=== PATIENT | female | born 1970 ===

== ENCOUNTER 2021-07-30 06:00 | Outpatient (RCR) | payer MEDICARE, MEDICAID, SELFPAY | END 2021-08-03 23:59 | disposition home or self-care (01) | LOC: MPT 06:00 | PROVIDERS: PCP Nurse Practitioner Family; Referring Provider Nurse Practitioner Family; Visit Provider Nurse Practitioner Family | DX: M46.06 Spinal enthesopathy, lumbar region (principal); M54.2 Cervicalgia | CPT/HCPCS: 97140; 97162 ==

== ENCOUNTER 2021-08-04 06:00 | Outpatient (RCR) | payer MEDICARE, MEDICAID, SELFPAY | END 2021-09-02 23:59 | disposition home or self-care (01) | LOC: MPT 06:00 | PROVIDERS: PCP Nurse Practitioner Family; Visit Provider Nurse Practitioner Family | DX: M46.06 Spinal enthesopathy, lumbar region (principal); M54.2 Cervicalgia | CPT/HCPCS: 97110; 97140; G0283 ==